=== PATIENT | female | born 1995 | race Caucasian/White ===

== ENCOUNTER 2023-08-23 15:45 | Emergency (ER) | payer MEDICARE, MEDICAID, SELFPAY ==
[2023-08-23 15:58] VITALS: BP 119/68; PULSE 88; RESP 16; TEMP 37.1; O2SAT 98
--- NOTE | 2023-08-23 17:03 | ED.GENADULT ---
HPI - General Adult General Chief complaint: Skin/Abscess/Foreign Body Stated complaint: left hand infected finger Source: patient Mode of arrival: ambulatory Limitations: no limitations History of Present Illness HPI narrative: Patient presents for evaluation of pain, swelling, redness to the 3rd digit left hand for the last 4 days. She indicates that she has pain that she rates 4/10 in severity in the skin surrounding the nail plate of that digit. She is diabetic. She is not check her blood sugar. No fever, chills, nausea, vomiting. There has been some slight sanguinous drainage from the affected area. She has been soaking her finger in warm water. Related Data Allergies Allergy/AdvReac Type Severity Reaction Status Date / Time No Known Allergies Allergy Verified 08/23/23 15:57 Review of Systems Review of Systems: CONSTITUTIONAL: Denies fever, chills, or sweats. EYES: Denies visual changes, redness, or discharge. ENT: Denies rhinorrhea, congestion, sore throat, or otalgia. CARDIOVASCULAR: Denies chest pain, palpitations, or edema. RESPIRATORY: Denies cough or dyspnea. GASTROINTESTINAL: Denies abdominal pain, nausea, vomiting, or diarrhea. GENITOURINARY: Denies dysuria or hematuria. SKIN: Reports redness and bloody drainage from the skin surrounding the nail plate of the 3rd digit left hand MUSCULOSKELETAL: Reports pain in the distal aspect of the 3rd digit left hand NEUROLOGIC: Denies headache, numbness, dizziness, or weakness. PSYCHIATRIC: Denies anxiety or depression. PMFSH Past Medical History Medical History ADD (attention deficit disorder) Diabetes Surgical History Surgical History No pertinent past surgical history Family History Family History Mother No problems noted. Social History Social History Substance use: never Gender identity (if verbalized by the patient): Female Spiritual care concerns: No Exam Narrative: GENERAL: Well-appearing, well-nourished, and in no acute distress. HEAD: Normocephalic, atraumatic. EYES: PERRLA and EOMI. ENT: Nares clear, no rhinorrhea or epistaxis. Mucous membranes moist. Oropharynx without tonsillar hypertrophy exudate or other lesions. Bilateral TMs pearly gonzáles nonbulging NECK: Supple. No adenopathy or masses. No carotid bruits or JVD CHEST: Clear to auscultation. No respiratory distress. No wheezes rales or rhonchi HEART: Regular rate and rhythm. No murmur heard. Normal peripheral pulses. ABDOMEN: Soft, nontender, nondistended, normal active bowel sounds. EXTREMITIES: Normal range of motion. There is tenderness to the skin surrounding the nail plate of the 3rd digit left hand. SKIN: There is swelling and redness to the skin surrounding the nail plate of the 3rd digit left hand. NEURO: No focal deficits. Alert and oriented x3. PSYCH: Normal mood and affect. Course Course Level of Care: Express Care Visit Vital Signs Vital signs: Vital Signs Temperature 37.1 C 08/23/23 15:58 Pulse Rate 88 08/23/23 15:58 Respiratory Rate 16 08/23/23 15:58 Blood Pressure 119/68 08/23/23 15:58 Pulse Oximetry 98 08/23/23 15:58 Oxygen Delivery Room Air 08/23/23 15:58 Temperature 37.1 C 08/23/23 15:58 Pulse Rate 88 08/23/23 15:58 Respiratory Rate 16 08/23/23 15:58 Blood Pressure 119/68 08/23/23 15:58 Pulse Oximetry 98 08/23/23 15:58 Oxygen Delivery Room Air 08/23/23 15:58 Procedures Other Procedure Procedure 1: Other Procedure: After obtaining informed consent, the skin surrounding the nail plate of the 3rd digit of the left hand was cleaned with Betadine. A single puncture was made into the skin surrounding the nail plate. A small amount of sanguinous d
== END 2023-08-23 17:03 | disposition home or self-care (01) ==
PROVIDERS: Emergency Provider Nurse Practitioner; PCP Internal Medicine
DX: L03.012 Cellulitis of left finger (principal); E11.9 Type 2 diabetes mellitus without complications
CPT/HCPCS: 10060; 87070; 87075; 87205; 99213; G0463

== ENCOUNTER 2023-10-26 12:01 | Emergency (ER) | payer MEDICARE, MEDICAID, SELFPAY ==
[2023-10-26 12:07] VITALS: BP 125/60; PULSE 88; RESP 20; TEMP 36.1; O2SAT 98
--- NOTE | 2023-10-26 12:11 | ED.SKABFB ---
HPI - Skin/Abscess/Foreign Bdy General Chief complaint: Skin/Abscess/Foreign Body Stated complaint: Right hand finger infection Time Seen by Provider: 10/26/23 12:11 Source: patient, RN notes reviewed and old records reviewed Mode of arrival: ambulatory Limitations: no limitations History of Present Illness HPI narrative: 28-year-old female to [facility] Care with complaint of redness, swelling, pain surrounding fingernail on 3rd digit of right hand for nearly 2 weeks. Patient states she believes that she trimmed her nail too short. Patient denies decreased range of motion, injury. Patient resting comfortably in exam room in no acute distress. Related Data Home Medications Medication Instructions Recorded Confirmed atorvastatin 20 mg tablet mg 10/26/23 dexmethylphenidate 30 mg mg PO 10/26/23 capsule,extended release [id number] empagliflozin 25 mg tablet mg 10/26/23 (Jardiance) glipizide 10 mg tablet mg 10/26/23 metformin 500 mg tablet mg 10/26/23 sitagliptin phosphate 100 mg mg 10/26/23 tablet (Januvia) trazodone 100 mg tablet mg 10/26/23 ziprasidone HCl 40 mg capsule mg PO 10/26/23 Allergies Allergy/AdvReac Type Severity Reaction Status Date / Time No Known Allergies Allergy Verified 08/23/23 15:57 Review of Systems Review of Systems: All systems reviewed & are unremarkable except as noted in HPI and below Constitutional: Constitutional: Reports no additional constitutional complaints Eyes: Eyes: Reports no additional eye complaints ENT: Reports system reviewed and no additional complaints, except as documented Cardiovascular: Cardiovascular: Reports no additional cardiovascular complaints, Denies chest pain and Denies dyspnea Respiratory: Respiratory: Reports no additional respiratory complaints, Denies cough and Denies dyspnea Musculoskeletal: Musculoskeletal: Reports no additional musculoskeletal complaints Integumentary/Breasts: Skin/Breast: Reports as per HPI, Reports erythema, Reports skin pain and Reports skin swelling Neurologic: Reports system reviewed and no additional complaints, except as documented Psychiatric: Psychiatric: Reports no additional psychiatric complaints PMF Past Medical History Medical History ADD (attention deficit disorder) Diabetes Surgical History Surgical History No pertinent past surgical history Family History Family History Mother No problems noted. Social History Social History Substance use: never Gender identity (if verbalized by the patient): Female Spiritual care concerns: No Comments At the time of my signature, I reviewed and agree with the nursing past medical, surgical, social, and family history. There is no relevant family history pertinent to the patient complaint. Exam Const: General: cooperative, no acute distress, alert and well nourished Nutritional Appearance: well nourished Orientation/consciousness: patient oriented x3 Limitations: no limitations HENMT: Head: normal to inspection Ears: external ears normal Face/Nose/Sinus: Normal external nose present, Normal nares present, normal facial exam, No erythema and No edema Face and sinus: normal facial exam, no erythema and no edema Mouth: Yes Normal oral and palatal mucosa present Eyes: General: appearance normal, both eyes and all related structures Neck: Neck: normal visual inspection, full ROM and no meningeal signs Chest: Chest palpation & inspection: normal inspection of the chest Resp: Effort & Inspection: normal respiratory effort and able to speak in complete sentences Cardio: Jugular venous distension: no JVD Rate: regular rate Rhythm: regular rhythm Back/Spine/Pelvis: Cervical Spine: cervic
[2023-10-26 12:12] VITALS: BP 125/60; PULSE 88; RESP 20; TEMP 36.1; O2SAT 98
== END 2023-10-26 12:23 | disposition home or self-care (01) ==
PROVIDERS: Emergency Provider Nurse Practitioner Family; PCP Internal Medicine
DX: L03.011 Cellulitis of right finger (principal); E11.9 Type 2 diabetes mellitus without complications
CPT/HCPCS: 99213; G0463

== ENCOUNTER 2023-11-26 10:35 | Emergency (ER) | payer MEDICARE, MEDICAID, SELFPAY ==
[2023-11-26 10:44] VITALS: BP 128/69; PULSE 91; RESP 20; TEMP 36.3; O2SAT 98
--- NOTE | 2023-11-28 20:55 | ED.BACK ---
HPI - Back Pain/Injury General Chief Complaint: Back Pain/Injury Stated Complaint: Back pain Time Seen by Provider: 11/26/23 10:49 Source: patient, RN notes reviewed and old records reviewed Mode of arrival: ambulatory Limitations: no limitations History of Present Illness HPI Narrative: 28-year-old female to [facility] with complaint of right mid back pain upon wakening 2 days ago. Patient believes she may have slept on it wrong. Patient denies injury, prior history, urinary symptoms, flank pain, lower extremity weakness, numbness, tingling. Patient states the pain is worse when bending over. Patient has attempted to treat at home with ibuprofen. Patient resting comfortably in exam room in no acute distress. Related Data Home Medications Medication Instructions Recorded Confirmed atorvastatin 20 mg tablet mg 10/26/23 dexmethylphenidate 30 mg mg PO 10/26/23 capsule,extended release [id number] empagliflozin 25 mg tablet mg 10/26/23 (Jardiance) glipizide 10 mg tablet mg 10/26/23 metformin 500 mg tablet mg 10/26/23 sitagliptin phosphate 100 mg mg 10/26/23 tablet (Januvia) trazodone 100 mg tablet mg 10/26/23 ziprasidone HCl 40 mg capsule mg PO 10/26/23 Allergies Allergy/AdvReac Type Severity Reaction Status Date / Time No Known Allergies Allergy Verified 08/23/23 15:57 Review of Systems Review of Systems: All systems reviewed & are unremarkable except as noted in HPI and below Constitutional: Constitutional: Reports no additional constitutional complaints Eyes: Eyes: Reports no additional eye complaints ENT: Reports system reviewed and no additional complaints, except as documented Cardiovascular: Cardiovascular: Reports no additional cardiovascular complaints, Denies chest pain and Denies dyspnea Respiratory: Respiratory: Reports no additional respiratory complaints, Denies cough and Denies dyspnea Musculoskeletal: Musculoskeletal: Reports as per HPI and Reports back pain Neurologic: Reports system reviewed and no additional complaints, except as documented Psychiatric: Psychiatric: Reports no additional psychiatric complaints PMFSH Past Medical History Medical History ADD (attention deficit disorder) Diabetes Surgical History Surgical History No pertinent past surgical history Family History Family History Mother No problems noted. Social History Social History Substance use: never Gender identity (if verbalized by the patient): Female Spiritual care concerns: No Comments At the time of my signature, I reviewed and agree with the nursing past medical, surgical, social, and family history. There is no relevant family history pertinent to the patient complaint. Exam Const: General: cooperative, comfortable, no acute distress, alert, well groomed and well nourished Nutritional Appearance: well nourished Orientation/consciousness: patient oriented x3 Limitations: no limitations HENMT: Head: normal to inspection Ears: external ears normal Face/Nose/Sinus: Normal external nose present, Normal nares present, normal facial exam, No erythema and No edema Face and sinus: normal facial exam, no erythema and no edema Mouth: Yes Normal oral and palatal mucosa present Eyes: General: appearance normal, both eyes and all related structures Neck: Neck: normal visual inspection, full ROM and no meningeal signs Chest: Chest palpation & inspection: normal inspection of the chest Resp: Effort & Inspection: normal respiratory effort and able to speak in complete sentences Cardio: Jugular venous distension: no JVD Rate: regular rate Rhythm: regular rhythm Back/Spine/Pelvis: Back: no CVA tenderness, No mass, No erythema, No
== END 2023-11-26 11:12 | disposition home or self-care (01) ==
PROVIDERS: Emergency Provider Nurse Practitioner Family; PCP Internal Medicine
DX: S29.012A Strain of muscle and tendon of back wall of thorax, initial encounter (principal); X58.XXXA Exposure to other specified factors, initial encounter; E11.9 Type 2 diabetes mellitus without complications
CPT/HCPCS: 99213; G0463